=== PATIENT | male | born 2000 | race Hispanic/Latino ===

== ENCOUNTER 2022-01-05 08:08 | Outpatient (CLI) | payer OTHER | END 2022-01-05 08:09 | disposition home or self-care (01) | LOC: CSHWCC 08:08 | PROVIDERS: ATTEND Nurse Practitioner Family | DX: S91.302D Unspecified open wound, left foot, subsequent encounter (principal); V29.9XXD Motorcycle rider (driver) (passenger) injured in unspecified traffic accident, subsequent encounter | CPT/HCPCS: 11042; 99203; G0463 ==

== ENCOUNTER 2022-01-12 09:03 | Outpatient (CLI) | payer OTHER | END 2022-01-12 09:04 | disposition home or self-care (01) | LOC: CSHWCC 09:03 | PROVIDERS: ATTEND Nurse Practitioner Family | DX: S91.302D Unspecified open wound, left foot, subsequent encounter (principal); S41.001D Unspecified open wound of right shoulder, subsequent encounter ==